=== PATIENT | female | born 1980 | race American Indian/Alaskan Native ===

== ENCOUNTER 2019-12-07 13:50 | Emergency (ER) | payer MEDICARE, MEDICAID ==
[2019-12-07] MEDS ORDERED: fentaNYL 100 MCG/2 ML SDV IVPUSH ONE (14:07)
[2019-12-07] MEDS ORDERED: Ondansetron 4 MG/2 ML SDV IVPUSH ONE (14:08)
[2019-12-07] MEDS ORDERED: Diphtheria/Tetanus Toxoids,Adult (Td) 0.5 ML SDV IM ONE (14:09)
[2019-12-07] MEDS ORDERED: Sodium Chloride 0.9% 1,000 ML IV SCH (14:15)
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
[2019-12-07] MEDS ORDERED: Bupivacaine 0.25% 10 ML SDV INJECT ONE (14:53)
[2019-12-07 17:22] VITALS: BP 111/56; PULSE 85
[2019-12-07] MEDS ORDERED: Bacitracin Oint 1 GM U/D Packet ONE (18:17)
[2019-12-07] MEDS ORDERED: Bacitracin Oint 1 GM U/D Packet TOP ONE (18:46)
[2019-12-07] MEDS ORDERED: Acetaminophen/Codeine 300-30 MG Tab PO ONE (18:46)
== END 2019-12-07 19:29 | disposition home or self-care (01) ==
LOC: JP.ED 13:50
DX: S68.620A Partial traumatic transphalangeal amputation of right index finger, initial encounter (principal); Z79.899 Other long term (current) drug therapy; Z23 Encounter for immunization; W34.00XA Accidental discharge from unspecified firearms or gun, initial encounter
CPT/HCPCS: 36415; 64450; 73140; 80053; 85025; 86850; 86900; 86901; 90471; 90714; 96365; 96375; 99285; A9270; J0694; J2405; J3010; J3490; J7030; J7050